=== PATIENT | male | born 1975 | race African-American/Black ===

== ENCOUNTER 2024-03-08 13:13 | Emergency (ER) | payer BC, OTHER ==
[~2024-03-08] VITALS: Ht 185.4 cm; Wt 108.9 kg
[2024-03-08] MEDS ORDERED: ACETAMINOPHEN 325 MG TAB PO ONE (14:00)
[2024-03-08] MEDS ORDERED: CYCLOBENZAPRINE5 M3 PO (15:06)
== END 2024-03-08 15:19 | disposition home or self-care (01) ==
LOC: ED 13:13
DX: M62.838 Other muscle spasm (principal); M54.6 Pain in thoracic spine; J45.909 Unspecified asthma, uncomplicated; Z88.6 Allergy status to analgesic agent